=== PATIENT | female | born 2000 | race Caucasian/White ===

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

== ENCOUNTER 2021-09-07 19:22 | Emergency (ER) | payer OTHER ==
[~2021-09-07] VITALS: Ht 182.9 cm; Wt 145.2 kg
[2021-09-07] MEDS ORDERED: PROZAC20 M1 PO (19:37)
[2021-09-07] MEDS ORDERED: ADDERALL 30 MG30 MG PO (19:37)
[2021-09-07] MEDS ORDERED: SINGULAIR 10 MG10 M1 PO (19:37)
[2021-09-07] MEDS ORDERED: TOPROL XL25 MG PO (19:37)
[2021-09-07 20:16] LABS: INFLUENZA A ANTIGEN Negative (Negative); INFLUENZA B ANTIGEN Negative (Negative)
[2021-09-07 21:11] LABS: HEMATOCRIT 39.9 % (37.0-47.0); HEMOGLOBIN 13.6 gm/dL (12.0-15.0); MCH 29.3 pg (26.0-34.0); MCHC 34.2 g/dL (28.0-37.0); MCV 85.9 fL (80.0-100.0); MPV 7.7 fl. (7.2-11.1); RBC 4.65 mil/uL (4.20-5.00); RDW-CV 13.4 % (10.5-14.5); WBC 8.2 thou/uL (4.0-11.0)
[2021-09-07 21:22] LABS: CALCIUM 8.8 mg/dL (8.5-10.1); POTASSIUM 3.5 mmol/L (3.5-5.1)
[2021-09-07 21:22] LABS: URINE BLOOD 3+ (Negative); URINE CLARITY CLOUDY; URINE COLOR DARK YELLOW; URINE GLUCOSE-RANDOM NEGATIVE (Negative); URINE KETONES 2+ (Negative); URINE LEUKOCYTES-REFLEX NEGATIVE (Negative); URINE NITRITE-REFLEX NEGATIVE (Negative); URINE PROTEIN 2+ (Negative); URINE SPECIFIC GRAVITY 1.025 (1.005-1.030)
[2021-09-07 21:27] LABS: ICTOTEST (BILI CONFIRMATORY) Negative (Negative); URINE BILIRUBIN 1+ (Negative)
[2021-09-07] MEDS ORDERED: ONDANSETRON ODT4 MG PO (21:31)
[2021-09-07 21:58] LABS: BACTERIA-REFLEX 1-9 Few /HPF (None Seen); CASTS None Seen /LPF (None Seen); CRYSTALS None Seen /LPF (None Seen); MUCUS 0-3 Light strn/LPF (None Seen); SQUAMOUS 0-3 Few /LPF (0-3); URINE RBC >20 Many /HPF (0-2); URINE WBC-REFLEX 0-5 Rare /HPF (0-5)
[2021-09-07 22:45] VITALS: BP 120/45
--- NOTE | 2021-09-08 11:28 | EKG ---
[place] [address] ELECTROCARDIOGRAM REPORT Name: LUIS FERNANDO LAIRD Room: [facility]#: [id number] Admission: 09/07/21 Attend Phys: Discharge: 09/07/21 Date of : [birth year] Date of Service: 09/07/212058 Report #: [id number] THIS REPORT FOR: //name// [facility] ED Test Date: 2021-09-07 Test Time: 20:59:58 Pat Name: LUIS FERNANDO LAIRD Department: Room: Gender: [employer] Operator: [place] : 2000 Requested By: Lev Irby Order Number: [id number] MD: Raman Ramsey Measurements Intervals [place] Rate: 92 P: 23 [place]: 149 QRS: 69 QRSD: 109 T: 1 QT: 348 QTc: 431 Interpretive Statements Sinus rhythm No previous ECG available for comparison Electronically Signed On 09-08-2021 11:28:25 HOSPITAL RECRUITER by Raman Ramsey [email or web address] <ELECTRONICALLY SIGNED> By: Raman Ramsey MD, [facility] 09/08/211127 58 58 Raman Ramsey MD, FACC /EPI
== END 2021-09-07 22:47 | disposition home or self-care (01) ==
LOC: M.ERS 19:22
PROVIDERS: Personal Emergency Response Attendant; Physician Assistant
DX: R11.2 Nausea with vomiting, unspecified (principal); Z20.822 Contact with and (suspected) exposure to COVID-19; R55 Syncope and collapse; R05.9 Cough, unspecified; J34.89 Other specified disorders of nose and nasal sinuses; R11.10 Vomiting, unspecified; F41.9 Anxiety disorder, unspecified; F32.9 Major depressive disorder, single episode, unspecified; Z79.899 Other long term (current) drug therapy